=== PATIENT | female | born 1970 | race Caucasian/White ===

== ENCOUNTER → 2017-02-16 | Outpatient (CLI) | payer BC ==
[~2017-02-16] MED LIST: IBUP-1050 PO; PRENTAB26 PO
--- NOTE | 2017-02-16 21:10 | DIAGNOSTIC IMAGING REPORT ---
RIGHT FOOT MIN 3 VIEWS ROUTINE CLINICAL HISTORY: Right foot cellulitis. COMPARISON: None FINDINGS: Tarsometatarsal joints are intact. There is mild posterior calcaneal spurring. There is no evidence of osteomyelitis within the right foot. No fracture or suspicious lesion is present. There is minimal plantar calcaneal spurring. IMPRESSION: No fracture or evidence of osteomyelitis within the right foot by radiography. Electronically signed by: Jhoan Manning M.D. 02/16/2017 9:09 PM Dictated Date/Time: 02/16/2017 9:08 PM
== END | disposition home or self-care (01) ==
LOC: C.RAD 17:11
PROVIDERS: ATTEND Nurse Practitioner Family
DX: L03.90 Cellulitis, unspecified (principal)